=== PATIENT | male | born 1960 | race Caucasian/White ===

== ENCOUNTER 2018-04-19 05:17 | Observation (INO) ==
[2018-04-19] MEDS ORDERED: Ondansetron 4 MG/2 ML VIAL IVP ONE (05:26)
[2018-04-19] MEDS ORDERED: *HR* FentaNYL (PF) 100 MCG/2 ML VIAL IVP ONE ×2 (05:27→06:06)
--- NOTE | 2018-04-19 05:35 | Emergency Department Note ---
Disposition Clinical Impression: Cholecystitis Disposition: Admitted As Inpatient Condition: Fair Referrals: Supriya Wahsington MD [Primary Care Provider] - Forms: ED Satisfaction Letter, Work/School Release Time of Disposition: 06:21 General Adult HPI - General Chief complaint: ED Abdominal Pain Stated complaint: abd pain Time Seen by Provider: 04/19/18 05:25 Source: patient, family Mode of arrival: ambulatory Limitations: no limitations Nursing Notes Reviewed: Yes Vital Signs Reviewed: Yes - History of Present Illness HPI Narrative: 57-year-old male presenting with chief complaint of right-sided abdominal pain. Patient states approximately 2:00 this morning he has had severe right-sided abdominal pain leading to nausea and belching. Patient denies any chest pain or shortness of breath. Denies any fevers or recent illnesses. Patient states a few weeks ago he had similar symptoms in the right upper quadrant but that these spontaneously resolved and were not as severe. Patient has had a hernia repair and "kidney surgery" but no other abdominal surgeries. Patient still has gallbladder and appendix. Patient denies trying any medications at home for this. Pain Scale: 10 - Related Data Allergies Allergy/AdvReac Type Severity Reaction Status Date / Time No Known Allergies Allergy Unverified 01/09/17 08:02 All systems ED: reviewed and negative except as stated. Constitutional: Denies: fever, chills Eyes: Reports: as per HPI ENT ED: Reports: as per HPI Cardiovascular: Denies: chest pain, palpitations, dyspnea on exertion Respiratory: Denies: cough, dyspnea, wheezes Gastrointestinal: Reports: abdominal pain, nausea. Denies: vomiting Genitourinary: Reports: as per HPI Musculoskeletal: Reports: as per HPI Integumentary: Reports: as per HPI Neurological: Denies: weakness, numbness, paresthesias Psychiatric: Reports: as per HPI Endocrine: Reports: as per HPI Hematological/Lymphatic: Reports: as per HPI Allergic/Immunologic: Reports: as per HPI Past Medical History - Past Medical History Attestation: Yes The following information was validated with the patient. Medical history: Reports: GERD, hypertension, kidney stones - Social History Smoking Status: Never smoker Smokeless Tobacco Status: No Alcohol use: Reports: rarely Drug use: Reports: none Physical Exam - General Limitations: no limitations General appearance: alert, in no apparent distress - Head Head exam: atraumatic, normocephalic, normal inspection - Eye Eye exam: Present: normal appearance. Absent: scleral icterus, conjunctival injection - ENT ENT exam: normal exam, mucous membranes moist - Neck Neck exam: Present: normal inspection, full ROM. Absent: tenderness, meningismus - Chest Chest inspection: Present: normal inspection, symmetric chest wall rise. Absent: tenderness, rash - Respiratory Respiratory exam: Present: normal lung sounds bilaterally. Absent: respiratory distress, wheezes - Cardiovascular Cardiovascular exam: Present: regular rate, normal rhythm, normal heart sounds - Abdominal Exam Abdominal exam: Present: soft, tenderness, distention, Vera's sign. Absent: guarding, rebound, rigidity Abdominal tenderness: Present: RUQ, RLQ, moderate - Extremities Exam Extremities exam: Present: normal inspection, full ROM - Neurological Exam Neurological exam: Present: alert, oriented X3 - Skin Skin exam: Present: warm, intact Course Course Narrative: 57-year-old male presenting to the emergency department for right-sided abdominal pain. In the room patient is extremely uncomfortable on exam. Rolling around on the bed. He is alert and oriented 3 and hemodynamically stable. Physical exam shows right-sided abdominal pain along the mid abdominal pain around the umbilicus. Patient's abdomen is mildly distended. Patient has had increased belching. Concern for acute cholecystitis versus other intra- abdominal pathologies at this time. We will obtain a laboratory analysis along with a CT of the abdomen and pelvis with pain control and antinausea medications . Disposition pending results. Patient agrees with this plan. - Reevaluation(s) Reevaluation #1: Patient's laboratory analysis benign. Bedside ultrasound completed and shows a thickened gallbladder wall. Positive Vera sign. Patient has received multipl e doses the pain medication in the ED and still having significant pain. By attending spoke with the surgeon on-call Dr. Alfredo who agrees this follows a pattern of acute cholecystitis. We will plan to admit the patient to his surgical surfaces for further treatment. He requests we start Zosyn on the patient. Patient remains alert and oriented 3 and hemodynamically stable in the room. Patient agrees to admission and further evaluation. Vital Signs Temperature 97.7 F 04/19/18 05:23 Pulse Rate 70 04/19/18 05:23 Respiratory Rate 20 04/19/18 05:23 Blood Pressure 165/9 04/19/18 05:23 O2 Sat by Pulse Oximetry 99 04/19/18 05:23 Temperature 97.7 F 04/19/18 05:23 Pulse Rate 66 04/19/18 06:09 Respiratory Rate 18 04/19/18 06:09 Blood Pressure 149/84 04/19/18 06:09 O2 Sat by Pulse Oximetry 97 04/19/18 06:09 Oxygen Delivery Oxygen Delivery Room Air Medical Decision Making - Lab Data Result diagrams: 04/19/18 05:25 04/19/18 05:25 Lab Results 04/19/18 04/19/18 Range/Units 05:25 05:25 WBC 9.8 (4.3-11.1) K/mcL RBC 5.14 (4.19-5.50) M/mcL Hgb 15.0 (12.9-16.9) g/dL Hct 46.5 (37.5-50.1) % MCV 90.5 (83.0-100.0) fL MCH 29.2 (28.0-33.3) pg MCHC 32.3 (31.6-35.5) g/dL RDW 12.4 (11.5-14.5) % Plt Count 285 (140-400) K/mcL MPV 10.2 (9.4-12.4) fL Immature Gran % 0.4 (0-4) % Seg Neutrophils % 77.8 % Lymphocytes % 11.2 % Monocytes % 8.1 % Eosinophils % 1.4 % Basophils % 1.1 % Neutrophils # 7.6 (1.6-8.9) K/mcL Lymphocytes # 1.1 (0.6-4.6) K/mcL Monocytes # 0.8 (0.0-1.3) K/mcL Eosinophils # 0.1 (0.0-0.6) K/mcL Basophils # 0.1 (0.0-0.2) K/mcL Sodium 138 (136-145) mEq/L Potassium 3.8 (3.5-5.1) mEq/L Chloride 103 (98-107) mEq/L Carbon Dioxide 25 (23-29) mEq/L BUN 19 (6-20) mg/dL Creatinine 0.99 (0.70-1.30) mg/dL Est GFR ( Amer) > 60 (> 60) Est GFR (Non-Af Amer) > 60 (> 60) BUN/Creatinine Ratio 19 (6-26) Glucose 142 H (70-105) mg/dL Calculated Osmolality 291 (280-300) Calcium 9.5 (8.6-10.3) mg/dL Total Bilirubin 0.4 (0.3-1.0) mg/dL Direct Bilirubin 0.1 (0.0-0.2) mg/dL Indirect Bilirubin 0.3 (0.0-1.2) mg/dL AST 14 (13-39) Units/L ALT 17 (7-52) Units/L Alkaline Phosphatase 54 (34-104) Units/L Serum Total Protein 7.4 (6.4-8.9) g/dL Albumin 4.5 (3.5-5.7) g/dL Globulin 2.9 (2.4-3.5) g/dL Albumin/Globulin Ratio 1.6 (1.1-2.2) Lipase 32 (11-82) Units/L Attestation Statement - Attestation Attestation: I, Elmer Leone, examined this patient and my medical decision-making was reviewed with the [employer]/PA/Advanced Practice Nurse/Resident Physician. I agree with the documented findings, disposition and treatment plan as described except to the extent set forth below. 57-year-old male presents emergency Department with concerns of severe epigastric and right upper quadrant abdominal pain. Patient states symptoms started acutely after Thanksgiving dinner one week ago. They have been intermittent since that time. Last night he ate asandwich and has had significant pain to the right upper quadrant. Eyes fever, chills, jaundice, vomiting. He did notice a change in color of her stools over the past week. Bedside ultrasound showed a thickened gallbladder wall to 6 mm with sludge and stones within the gallbladder. There is no evidence of pericholecystic fluid h owever he did have a positive sonographic Vera sign. CT also showed thickening of the gallbladder wall without pericholecystic fluid. Patient is afebrile and does not have elevation of his LFTs however he is not significant pain in the emergency department. I spoke with Dr. Alfredo regarding the patient's case and presentation who agreed with the plan for admission to hospital on IV antibiotics and possible surgery.
[2018-04-19 05:41] LABS: Basophils # 0.1 K/mcL (0.0-0.2); Basophils % 1.1 %; Eosinophils # 0.1 K/mcL (0.0-0.6); Eosinophils % 1.4 %; Hematocrit 46.5 % (37.5-50.1); Immature Granulocytes % 0.4 % (0-4); Lymphocytes # 1.1 K/mcL (0.6-4.6); Lymphocytes % 11.2 %; Mean Corpuscular HGB Conc 32.3 g/dL (31.6-35.5); Mean Corpuscular Hemoglobin 29.2 pg (28.0-33.3); Mean Corpuscular Volume 90.5 fL (83.0-100.0); Mean Platelet Volume 10.2 fL (9.4-12.4); Monocytes # 0.8 K/mcL (0.0-1.3); Monocytes % 8.1 %; Neutrophils # 7.6 K/mcL (1.6-8.9); Platelet Count 285 K/mcL (140-400); Red Blood Count 5.14 M/mcL (4.19-5.50); Red Cell Distribution Width 12.4 % (11.5-14.5); Segmented Neutrophils % 77.8 %
[2018-04-19 06:01] LABS: Alanine Aminotransferase 17 Units/L (7-52); Albumin 4.5 g/dL (3.5-5.7); Albumin/Globulin Ratio 1.6 (1.1-2.2); Alkaline Phosphatase 54 Units/L (34-104); Aspartate Amino Transferase 14 Units/L (13-39); BUN/Creatinine Ratio 19 (6-26); Bilirubin,Direct 0.1 mg/dL (0.0-0.2); Bilirubin,Indirect 0.3 mg/dL (0.0-1.2); Bilirubin,Total 0.4 mg/dL (0.3-1.0); Blood Urea Nitrogen 19 mg/dL (6-20); Calcium 9.5 mg/dL (8.6-10.3); Carbon Dioxide 25 mEq/L (23-29); Chloride 103 mEq/L (98-107); Globulin 2.9 g/dL (2.4-3.5); Glucose 142 mg/dL (70-105); Lipase 32 Units/L (11-82); Osmolality,Calculated 291 (280-300); Potassium 3.8 mEq/L (3.5-5.1); Sodium 138 mEq/L (136-145); Total Protein 7.4 g/dL (6.4-8.9); eGFR For Non-African Americans > 60 (> 60)
[2018-04-19] MEDS ORDERED: Hyoscyamine 0.5 MG/ML MLS IVP ONE (06:09)
[2018-04-19] MEDS ORDERED: Piperacillin/Tazobactam 3.375 GM in 0.9 % Sodium Chloride Mini Bag 100 ML IVPB ONE (06:15)
[2018-04-19 07:15] LABS: INR 1.2; Prothrombin Time 13.1 Seconds (9.4-12.1)
[2018-04-19 08:53] LABS: Bilirubin,Urine Negative (Negative); Blood,Urine Negative (Negative); Clarity,Urine Turbid (Clear); Color,Urine Yellow (Yellow); Glucose,Urine (UA) Normal (Normal); Ketones,Urine Trace mg/dL (Negative); Leukocyte Esterase,Urine Negative (Negative); Nitrite,Urine Negative (Negative); Protein,Urine Trace mg/dL (Neg-Trace); Specific Gravity,Urine > 1.030 (1.010-1.025); Urobilinogen,Urine Normal (Normal)
[2018-04-19 09:09] LABS: Bacteria,Urine Many per hpf (None-Few)
[2018-04-19 09:10] LABS: Amorphous Sediment,Urine Few (Few); RBC,Urine 0-3 per hpf (0-3); Squamous Epithelial Cell,Urine Few per lpf (None-Few); WBC,Urine 0-3 per hpf (0-3)
[2018-04-19] MEDS: OXYCODONE Oral CONC 10 MG/0.5 ML ORAL.SYG SL PRN ×2 (09:44→20:26)
[2018-04-19] MEDS ORDERED: Naloxone 0.4 MG/ML INJ IVP PRN (10:28)
[2018-04-19] MEDS: 0.9 % Sodium Chloride 1,000 ML IVC SCH ×2 (14:12→23:49)
[2018-04-19] MEDS: Ondansetron 4 MG/2 ML VIAL IVP SCH ×3 (14:12→23:46)
[2018-04-19] MEDS: *HR* OxyCODONE Immed Rel 5 MG TABLET PO PRN (14:28)
[2018-04-19] MEDS: Piperacillin/Tazobactam 3.375 GM in 0.9 % Sodium Chloride Mini Bag 100 ML IVPB SCH ×2 (17:04→23:44)
--- NOTE | 2018-04-19 19:51 | General Surg History&Physical ---
Date of Encounter: 04/19/18 Time of Encounter: 08:00 Assessment and Plan (1) Cholecystitis Current Visit: Yes Status: Acute 57M likely with mild cholecystis; non septic; Discussed in detail with the patient concerning non operative management vs surgery while an inpatient. Due to social circumstances, the patient would rather have his gallbladder removed this admission; diet as tolerated; bland NPO at midnight IV abx plan for OR in AM with my partner, Dr. Elizondo Discussed with patient and Dr. Elizondo. The assessment and plan as outlined above was discussed with the patient and/or family members who expressed understanding and agreement. All questions were answered. History of Present Illness Chief complaint: abdominal pain HPI: Mr. Rajan is a 57 year old male who presents with a week long history of RUQ/epigastric pain that was precipated after thanksgiving dinner. No reports of radiation, but the pain was sharp per the patient, rated ~8-10/10 with associated nausea, vomiting, and PO intolerance. The patient was not able to identify any alleviating factors. No reports of fevers, chills, nor diarrhea. Due to the severity of symptoms and its non relenting nature, the patient presented for evaluation. A CT scan and US were obtained which confirmed gallbladder wall thickening, sludge, and trace pericholecystic fluid. All findings were reviewed and inte rpreted by me in combination with radiology reads. Of note, this morning the patient reports no pain, has a strong appetite, never had a white count nor an elevation of his T bili to suggest obstruction. Past Med Surg Social Fam HX - Past Medical History Medical history: GERD, hypertension, kidney stones - Social History Smoking Status: Former smoker Smokeless Tobacco Status: No Alcohol use: rarely Drug use: none - Family History Mother Hx Family Cancer: Yes Father Hx Family Cardiac Disorders: Yes Hx Family Endocrine Disorder: Yes (DM) Hx Family Medical Disorders: Yes (Kidney dx) Medications and Allergies Albuterol Sulfate [Albuterol Inhaler] 2 puff IH Q6H PRN 04/19/18 [History] Gabapentin [Neurontin] 300 mg PO HS 04/19/18 [History] Losartan Potassium 50 mg PO DAILY 04/19/18 [History] Omeprazole [PriLOSEC] 40 mg PO DAILY 04/19/18 [History] Allergy/AdvReac Type Severity Reaction Status Date / Time No Known Allergies Allergy Verified 04/19/18 07:03 Review of Systems All systems PM: 12 point ROS negative besides HPI findings; General Surgery Exam Initial Vital Signs Temp Pulse Resp BP Pulse Ox 97.7 F 70 20 165/9 99 04/19/18 05:23 04/19/18 05:23 04/19/18 05:23 04/19/18 05:23 04/19/18 05:23 - General physical appearance no distress - Eyes other (no scleral icterus) - ENT normocephalic - Neck no lymphadectomy - Respiratory normal expansion, normal respiratory effort - Cardiovascular Cardiovascular exam: Present: RRR - Abdomen Abdomen general surgery: Present: soft, non tender ((-)mehta's sign) - Integumentary Integumentary general surgery: Present: warm and dry - Neurologic Present: CN 2-12 grossly intact - Musculoskeletal Present: normal posture - Psychiatric Psychiatric general surgery: Present: A&Ox3 Results - Labs 04/19/18 05:25 04/19/18 05:25 Abnormal lab results PT 13.1 Seconds (9.4-12.1) H 04/19/18 06:54 Glucose 142 mg/dL (70-105) H 04/19/18 05:25 Urine Clarity Turbid (Clear) A 04/19/18 08:45 Ur Specific [place] > 1.030 (1.010-1.025) H 04/19/18 08:45 Urine Ketones Trace mg/dL (Negative) H 04/19/18 08:45 Urine Bacteria Many per hpf (None-Few) H 04/19/18 08:45 Diabetes panel 04/19/18 Range/Units 05:25 Sodium 138 (136-145) mEq/L Potassium 3.8 (3.5-5.1) mEq/L Chloride 103 (98-107) mEq/L Carbon Dioxide 25 (23-29) mEq/L BUN 19 (6-20) mg/dL Creatinine 0.99 (0.70-1.30) mg/dL Glucose 142 H (70-105) mg/dL Calcium 9.5 (8.6-10.3) mg/dL AST 14 (13-39) Units/L ALT 17 (7-52) Units/L Alkaline Phosphatase 54 (34-104) Units/L Albumin 4.5 (3.5-5.7) g/dL Calcium panel 04/19/18 Range/Units 05:25 Calcium 9.5 (8.6-10.3) mg/dL Albumin 4.5 (3.5-5.7) g/dL Pituitary panel 04/19/18 Range/Units 05:25 Sodium 138 (136-145) mEq/L Potassium 3.8 (3.5-5.1) mEq/L Chloride 103 (98-107) mEq/L Carbon Dioxide 25 (23-29) mEq/L BUN 19 (6-20) mg/dL Creatinine 0.99 (0.70-1.30) mg/dL Glucose 142 H (70-105) mg/dL Calcium 9.5 (8.6-10.3) mg/dL Adrenal panel 04/19/18 Range/Units 05:25 Sodium 138 (136-145) mEq/L Potassium 3.8 (3.5-5.1) mEq/L Chloride 103 (98-107) mEq/L Carbon Dioxide 25 (23-29) mEq/L BUN 19 (6-20) mg/dL Creatinine 0.99 (0.70-1.30) mg/dL Glucose 142 H (70-105) mg/dL Calcium 9.5 (8.6-10.3) mg/dL Total Bilirubin 0.4 (0.3-1.0) mg/dL AST 14 (13-39) Units/L ALT 17 (7-52) Units/L Alkaline Phosphatase 54 (34-104) Units/L Albumin 4.5 (3.5-5.7) g/dL All other labs normal. - Imaging CT scan - abdomen: report reviewed, image reviewed CT scan - pelvis: report reviewed, image reviewed US - abdomen: report reviewed, image reviewed
[2018-04-20] MEDS ORDERED: Ondansetron 4 MG/2 ML VIAL IVP ONE ×2 (01:14→10:27)
[2018-04-20] MEDS: *HR* OxyCODONE Immed Rel 5 MG TABLET PO PRN (03:32)
[2018-04-20] MEDS: Ondansetron 4 MG/2 ML VIAL IVP SCH ×2 (06:06→11:41)
[2018-04-20] MEDS: Piperacillin/Tazobactam 3.375 GM in 0.9 % Sodium Chloride Mini Bag 100 ML IVPB SCH (07:36)
[2018-04-20] MEDS ORDERED: *HR* Succinylcholine 200 MG/10 ML VIAL IVP ONE (08:42)
[2018-04-20] MEDS ORDERED: *HR* FentaNYL (PF) 100 MCG/2 ML VIAL ONE (08:43)
[2018-04-20] MEDS ORDERED: *HR* Propofol 200 MG/20 ML VIAL IVP ONE (08:44)
[2018-04-20] MEDS ORDERED: *HR* Midazolam HCl 2 MG/2 ML VIAL ONE (08:44)
[2018-04-20] MEDS ORDERED: Lidocaine -MPF 2% 2 ML VIAL ONE (08:45)
[2018-04-20] MEDS ORDERED: *HR* Rocuronium Bromide 50 MG/5 ML VIAL ONE (08:45)
[2018-04-20] MEDS ORDERED: Dexamethasone 4 MG/ML VIAL ONE (08:45)
[2018-04-20] MEDS ORDERED: Ondansetron 4 MG/2 ML VIAL ONE (08:45)
[2018-04-20] MEDS ORDERED: Neostigmine Methylsulfate 3 MG/3 ML SYRINGE ONE (08:48)
--- NOTE | 2018-04-20 09:09 | Event Note ---
Date of Encounter: 04/20/18 Time of Encounter: 09:08 Patient admitted to the hospital secondary to acute cholecystitis. Patient cannot have the procedure performed yesterday due to the lateness the possible double opening for the surgical procedure. Patient states that currently he is not having any pain. No nausea or vomiting. We will proceed with a laparoscopic cholecystectomy
[2018-04-20] MEDS: OXYCODONE Oral CONC 10 MG/0.5 ML ORAL.SYG SL PRN (09:38)
--- NOTE | 2018-04-20 09:47 | Anesthesia Evaluation PreOp ---
Date of Encounter: 04/20/18 Time of Encounter: 10:12 - Past History Planned Operation: Lap cholecystectomy Cardiac History: HTN Pulmonary History: Former smoker, COPD [employer]OR History: Denies Any Significant HX Other Medical History: Renal (stones), GERD Anesthesia History: No Prior Anesthetic Complications Alcohol Use: rarely Drug use: none Medications and Allergies Albuterol Sulfate [Albuterol Inhaler] 2 puff IH Q6H PRN 04/19/18 [History] Gabapentin [Neurontin] 300 mg PO HS 04/19/18 [History] Losartan Potassium 50 mg PO DAILY 04/19/18 [History] Omeprazole [PriLOSEC] 40 mg PO DAILY 04/19/18 [History] Allergy/AdvReac Type Severity Reaction Status Date / Time No Known Allergies Allergy Verified 04/19/18 07:03 - Meds/Allergy Pre-op Review Medications Reviewed: Yes Allergies Reviewed: Yes Beta Blockers on Current Med List: No Anesthesia Results - Labs 04/19/18 05:25 04/19/18 05:25 - Imaging Additional studies: PFTs: INTERPRETATION: Spirometry shows mild airway restrictive disease. Following Bronchodilator, there is 28% increase in small airways/mid-flows. Lung Volumes SVC mildly reduced. Flow Volume Loop: Normal. Anesthesia Exam Last Vital Signs Temp 97.4 F L 04/20/18 06:46 Pulse 75 04/20/18 06:46 Resp 12 04/20/18 06:46 BP 116/66 04/20/18 06:46 Pulse Ox 94 04/20/18 06:46 Weight: 103 kg - HEENT Pupil (Motor): Pupils equal, EOMI Mallampati: III Teeth: Missing, Poor dentition Denture Type: Upper: Complete Oral Opening: Greater than 3 - [employer]OR LOC: Oriented - Cardiac Rhythm: Regular Murmur: None - Pulmonary Breath Sounds: bilateral Clear Respiratory Effort: Symmetrical Anesthesia Assess/Plan ASA Score: 2 Level of consciousness: Cooperative Anesthetic Plan: General Monitoring Plan: Standard Monitors Recovery Plan: PACU
[2018-04-20] MEDS ORDERED: Bupivacaine/EPI 1:200k 0.5%PF 30 ML VIAL ONE (10:16)
[2018-04-20] MEDS ORDERED: Isovue-300 50 ML VIAL IVP ONE (10:16)
[2018-04-20] MEDS ORDERED: *HR* OxyCODONE Immed Rel 5 MG TABLET PO PRN ×2 (10:27→13:35)
[2018-04-20] MEDS ORDERED: *HR* Promethazine 25 MG/ML VIAL IVP PRN (10:27)
[2018-04-20] MEDS ORDERED: EPHEDrine 50 MG/ML VIAL ONE (11:12)
[2018-04-20] MEDS ORDERED: *HR* Morphine 10 MG/ML VIAL ONE (11:21)
--- NOTE | 2018-04-20 12:05 | Operative Note ---
Date of procedure: 04/20/18 Pre-op diagnosis: Acute cholecystitis Post-op diagnosis: same Procedure: Laparoscopic cholecystectomy Anesthesia: LIZANDROA Surgeon: Masood Elizondo Was there an student assistant present: No Estimated blood loss (cc): 20 Specimen: gallbladder and contents Condition: stable Disposition: PACU Procedure in Detail: Date of surgery: 04/20/18 After properly identifying the patient, the patient was brought to the operating room and placed in the supine position. After proper IV sedation was achieved followed by general endotracheal intubation, the patient's abdomen was prepped and draped in a normal sterile fashion. A timeout was performed noting the patient's name and type of procedure to be performed. An 11 blade scalpel was used to make a supraumbilical incision down to the level of the rectus fascia. Once the fascia was incised and the abdomen was entered a 12 mm port was placed to the incision and the abdomen was insufflated with carbon dioxide. A laparoscopic camera was placed through the port which showed no injury to the intra-abdominal organs upon entry. A subxiphoid 5 mm port and a right subcostal margin 5 mm port were then placed under direct camera visualization. The patient was placed in reverse Trendelenburg position and the gallbladder was retracted superiorly and anteriorly. The peritoneum appeared somewhat inflamed consistent with acute cholecystitis. The gallbladder was also distended and a laparoscopic needle decompression was performed which allow for removal of 30 mL of bilious material. This allowed for grasping of the gallbladder. The peritoneal covering overlying the cystic duct and cystic artery were then is olated, clipped with laparoscopic clips, and incised laparoscopic scissors. The gallbladder was carefully dissected off the gallbladder fossa with Bovie cauterization. During this dissection and retraction the gallbladder was iatrogenically entered with spillage of bile and small stones which were immediately suctioned and removed. Once the gallbladder was carefully teased off and dissected off the gallbladder fossa it was removed from the abdomen via an Endobag. Two large gallstones were also identified outside of the gallbladder which were also placed in the endoscopic bag and removed. The gallbladder fossa was reinspected for hemostasis which was maintained in the right upper quadrant was copiously irrigated with normal saline solution until the effluent was clear. All ports are then removed from the abdomen after the abdomen was desufflated. This fascia for the supraumbilical incision was reapproximated with a figure of 8-0 Vicryl suture. The subcutaneous tissue was reapproximated with a 3-0 Vicryl suture and the epidermal and dermal layers for the remaining incisions were closed with 4-0 Monocryl sutures. No, sponge, and instrument counts were correct 2 and the incisions were covered with Steri-Strips and Band-Aids. The patient was aroused from IV sedation, extubated in the operating room without complication, and transported to the recovery room in stable condition.
--- NOTE | 2018-04-20 12:09 | Discharge Summary ---
Orders not resulted at time of discharge: Pending orders 04/20/18 11:57 Surgical Pathology [PTH] Routine Date of Encounter: 04/20/18 Time of Encounter: 12:10 General Surgery Exam Initial Vital Signs Temp Pulse Resp BP Pulse Ox 97.7 F 70 20 165/9 99 04/19/18 05:23 04/19/18 05:23 04/19/18 05:23 04/19/18 05:23 04/19/18 05:23 - Eyes PERRL, normal ocular movement - Cardiovascular Cardiovascular exam: Present: RRR, no murmurs/rubs/gallops - Abdomen Abdomen general surgery: Present: soft, tender (perincisional pain. Band-Aids in place.) - Hospital Course Hospital course: Mr. Rajan is a 57 year old male Time spent discussing smoking cessation with patient: 3 to 10 minutes - Time Spent with Patient Total time spent providing and/or coordinating discharge services: Less than 30 minutes - Discharge Medications Prescriptions: OxyCODONE/APAP 7.5/325 [Percocet 7.5/325 MG] 1 each PO Q8HR PRN 7 Days #21 tablet PRN Reason: Pain Docusate [Colace] 100 mg PO BID 5 Days #20 capsule Home Medications: Albuterol Sulfate [Albuterol Inhaler] 2 puff IH Q6H PRN 04/19/18 [History] Gabapentin [Neurontin] 300 mg PO HS 04/19/18 [History] Losartan Potassium 50 mg PO DAILY 04/19/18 [History] Omeprazole [PriLOSEC] 40 mg PO DAILY 04/19/18 [History] Docusate [Colace] 100 mg PO BID 5 Days #20 capsule 04/20/18 [Rx] OxyCODONE/APAP 7.5/325 [Percocet 7.5/325 MG] 1 each PO Q8HR PRN 7 Days #21 tablet 04/20/18 [Rx] Allergies/Adverse Reactions: Allergy/AdvReac Type Severity Reaction Status Date / Time No Known Allergies Allergy Verified 04/19/18 07:03 Date of admission: 04/19/18 06:50 Primary care physician: Supriya Washington MD Discharging clinician: Masood Elizondo Anticipated date of discharge: 04/20/18 Labs on day of discharge: Labs from last 24 hours 04/20/18 05:55 POC Glucose 101 H - Impressions ITS Impressions Abdomen/Pelvis CT 04/19/18 05:32 IMPRESSION: Gallbladder is mildly dilated with mild wall thickening/edema. Possible punctate pigmented gallstone. Findings may represent cholecystitis in the appropriate clinical setting. Few incidental/chronic findings as described. RECOMMENDATIONS: Consider further assessment with ultrasound and/or HIDA scan as clinically warranted. D/ / Alvarez Andres MD / Alvarez Andres MD Interpreting Provider: Alvarez Andres MD Gallbladder Ultrasound 04/19/18 06:30 IMPRESSION: Gallstones and gallbladder sludge are present, with findings concerning for acute cholecystitis. D/ / Junior Voss MD / Junior Voss MD Interpreting Provider: Junior Voss MD - Patient Status Disposition: Home, Self-Care Condition: Good Overall status at discharge: patient is progressing back to baseline - Discharge Instructions Follow Up With: Supriya Washington MD [Primary Care Provider] - Additional Instructions: No heavy lifting greater than 15 pounds for 2 weeks. May remove Band-Aids in 2 days. May shower in 2 days.
[2018-04-20] MEDS ORDERED: Acetaminophen IV 1,000 MG/100 ML INFUS..BTL ONE (12:23)
[2018-04-20] MEDS ORDERED: Ringers Solution, Lactated 1,000 ML ONE (12:23)
[2018-04-20] MEDS ORDERED: Ketorolac 30 MG/ML VIAL ONE (12:23)
[2018-04-20] MEDS: *HR* HYDROmorphone (PF) 1 MG/ML SYRINGE IVP PRN ×2 (12:28→12:49)
--- NOTE | 2018-04-20 13:27 | Anesthesia Evaluation Post Op ---
Date of Encounter: 04/20/18 Time of Encounter: 13:25 - Vital Signs Vital Signs: Last Vital Signs Temp 97.9 F 04/20/18 13:12 Pulse 60 04/20/18 13:12 Resp 20 04/20/18 13:12 BP 127/71 04/20/18 13:12 Pulse Ox 96 04/20/18 13:12 - Lungs Lungs: Clear Ascult./Percussion - Airway Airway: Non-obstructed - Cardiovascular Regular Rate - Mental Status Mental Status: Alert & Oriented, Answers Appropriately - Pain Pain Scale: 5 - Nausea Vomiting Nausea Vomiting: Not Present - Hydration Hydration: Ice chips - Discharge PostOp Status: Transfer Patient to floor
[2018-04-20] MEDS ORDERED: MORPHINE SUL Oral CONC 10 MG/0.5 ML ORAL.SYG SL PRN (13:35)
[2018-04-20] MEDS ORDERED: Naloxone 0.4 MG/ML INJ IVP PRN (13:35)
[2018-04-20] MEDS ORDERED: OXYCODONE Oral CONC 10 MG/0.5 ML ORAL.SYG SL PRN (13:35)
[2018-04-20] MEDS ORDERED: Piperacillin/Tazobactam 3.375 GM in 0.9 % Sodium Chloride Mini Bag 100 ML IVPB SCH (16:00)
[2018-04-20 16:04] VITALS: BP 139/82
[2018-04-20] MEDS ORDERED: Ondansetron 4 MG/2 ML VIAL IVP SCH (18:00)
== END 2018-04-20 16:16 | disposition home or self-care (01) ==
LOC: EMEROOARM 05:17 → 3ANU 05:17
PROVIDERS: ADMIT Surgery; ATTEND Surgery

== ENCOUNTER 2020-01-17 13:54 | Observation (INO) ==
[2020-01-17] MEDS ORDERED: Aspirin 325 MG TABLET PO ONE (14:55)
[2020-01-17 15:49] LABS: Basophils # 0.1 K/mcL (0.0-0.2); Basophils % 1.1 %; Eosinophils # 0.1 K/mcL (0.0-0.6); Eosinophils % 1.3 %; Hematocrit 45.5 % (37.5-50.1); Immature Granulocytes % 0.6 % (0-4); Lymphocytes # 1.4 K/mcL (0.6-4.6); Lymphocytes % 14.1 %; Mean Corpuscular Hemoglobin 29.9 pg (28.0-33.3); Mean Corpuscular Volume 90.8 fL (83.0-100.0); Mean Platelet Volume 10.5 fL (9.4-12.4); Monocytes # 0.8 K/mcL (0.0-1.3); Monocytes % 8.3 %; Neutrophils # 7.3 K/mcL (1.6-8.9); Platelet Count 247 K/mcL (140-400); Red Blood Count 5.01 M/mcL (4.19-5.50); Red Cell Distribution Width 12.9 % (11.5-14.5); Segmented Neutrophils % 74.6 %; White Blood Count 9.8 K/mcL (4.3-11.1)
[2020-01-17 15:58] LABS: Prothrombin Time 11.4 Seconds (9.4-12.1)
[2020-01-17 16:00] LABS: Activated Partial Thrombo Time 33.9 Seconds (26.0-36.0); BUN/Creatinine Ratio 13 (6-26); Blood Urea Nitrogen 14 mg/dL (8-23); Calcium 9.4 mg/dL (8.6-10.3); Carbon Dioxide 23 mEq/L (23-29); Chloride 106 mEq/L (98-107); Glucose 115 mg/dL (70-105); Magnesium 1.9 mg/dL (1.6-2.6); Osmolality,Calculated 291 (280-300); Potassium 3.5 mEq/L (3.5-5.1); Sodium 140 mEq/L (136-145); eGFR For African Americans > 60 (> 60); eGFR For Non-African Americans > 60 (> 60)
[2020-01-17 16:03] LABS: Troponin I 0.04 ng/mL (< 0.04)
[2020-01-17] MEDS ORDERED: Isovue-370 500 ML BOTTLE IVP ONE (16:04)
[2020-01-17] MEDS ORDERED: Naloxone 0.4 MG/ML INJ IVP PRN (17:15)
[2020-01-17] MEDS ORDERED: Perflutren Lipid Microsphere 1.3 ML in 0.9 % Sodium Chloride 8.7 ML IVP PRN (17:15)
[2020-01-17] MEDS ORDERED: Nitroglycerin 0.4 MG TAB.SUBL SL PRN (18:13)
[2020-01-17] MEDS ORDERED: Ipratropium/Albuterol Neb 3 ML IH PRN (18:17)
[2020-01-17] MEDS: *HR* Heparin 5,000 UNIT/ML VIAL SQ SCH (18:30)
[2020-01-17] MEDS: Acetaminophen 325 MG TABLET PO PRN (18:32)
[2020-01-17] MEDS ORDERED: Morphine Sulfate 2 MG/ML SYRINGE IVP ONE (19:29)
[2020-01-17] MEDS ORDERED: Melatonin 3 MG TABLET PO PRN (21:08)
[2020-01-18] MEDS ORDERED: *HR* LORazepam 2 MG/ML VIAL IVP ONE ×2 (00:17→03:11)
[2020-01-18 03:23] LABS: Hematocrit 43.6 % (37.5-50.1); Hemoglobin 13.7 g/dL (12.9-16.9); Mean Corpuscular HGB Conc 31.4 g/dL (31.6-35.5); Mean Corpuscular Hemoglobin 29.5 pg (28.0-33.3); Mean Corpuscular Volume 93.8 fL (83.0-100.0); Mean Platelet Volume 10.4 fL (9.4-12.4); Platelet Count 211 K/mcL (140-400); Red Blood Count 4.65 M/mcL (4.19-5.50); White Blood Count 6.9 K/mcL (4.3-11.1)
[2020-01-18 03:40] LABS: BUN/Creatinine Ratio 14 (6-26); Blood Urea Nitrogen 16 mg/dL (8-23); Calcium 8.9 mg/dL (8.6-10.3); Carbon Dioxide 24 mEq/L (23-29); Chloride 106 mEq/L (98-107); Glucose 104 mg/dL (70-105); Osmolality,Calculated 291 (280-300); Potassium 3.6 mEq/L (3.5-5.1); Sodium 140 mEq/L (136-145); eGFR For African Americans > 60 (> 60); eGFR For Non-African Americans > 60 (> 60)
[2020-01-18] MEDS: *HR* Heparin 5,000 UNIT/ML VIAL SQ SCH (05:14)
[2020-01-18] MEDS ORDERED: Regadenoson 0.4 MG/5 ML SYRINGE IVP ONE (07:32)
[2020-01-18] MEDS: Aspirin Enteric Coated 81 MG Tablet PO SCH (08:59)
[2020-01-18] MEDS ORDERED: *HR* Heparin 5,000 UNIT/ML VIAL IVP ONE (10:53)
[2020-01-18] MEDS ORDERED: *HR* Heparin 5,000 UNIT/ML VIAL IVP PRN ×2 (10:53)
[2020-01-18] MEDS ORDERED: Heparin 25,000UNIT/250ML 1/2NS 25,000 UNIT/250 ML IV.SOLN IVC SCH (11:00)
[2020-01-18 11:01] LABS: Chol/HDL Ratio 4.7 (0-4.9); Cholesterol 173 mg/dL (< 200); HDL Cholesterol 37 mg/dL (40-59); LDL Cholesterol,Calculated 99 mg/dL (< 100); Triglycerides 185 mg/dL (< 150)
[2020-01-18 11:02] LABS: Troponin I < 0.03 ng/mL (< 0.04)
[2020-01-18] MEDS: Nitroglycerin 0.2 MG PATCH.TD24 TD SCH (11:24)
[2020-01-18] MEDS: Acetaminophen 325 MG TABLET PO PRN ×2 (12:23→21:09)
[2020-01-18] MEDS ORDERED: Morphine Sulfate 2 MG/ML SYRINGE IVP ONE (14:56)
[2020-01-18] MEDS ORDERED: 0.9 % Sodium Chloride 1,000 ML ONE (15:56)
[2020-01-18] MEDS ORDERED: ISOVUE-370 200 ML INFUS..BTL ONE (15:57)
[2020-01-18] MEDS ORDERED: Nitroglycerin 1,000 MCG/10 ML VIAL IV ONE (15:57)
[2020-01-18] MEDS ORDERED: *HR* Heparin 10,000 UNIT/10 ML VIAL ONE (15:57)
[2020-01-18] MEDS ORDERED: Heparin 1,000 UNITS/500 mL 500 ML ONE (15:57)
[2020-01-18] MEDS ORDERED: Tirofiban 12.5 MG/250ML 12.5 MG/250 ML BAG ONE (16:34)
[2020-01-18] MEDS ORDERED: *HR* FentaNYL (PF) 100 MCG/2 ML VIAL ONE (16:34)
[2020-01-18] MEDS ORDERED: *HR* Midazolam HCl 2 MG/2 ML VIAL ONE (16:34)
[2020-01-19 04:51] LABS: Basophils % 1.3 %; Eosinophils % 3.3 %; Hematocrit 43.6 % (37.5-50.1); Hemoglobin 13.8 g/dL (12.9-16.9); Immature Granulocytes % 0.4 % (0-4); Lymphocytes % 23.6 %; Mean Corpuscular HGB Conc 31.7 g/dL (31.6-35.5); Mean Corpuscular Hemoglobin 29.4 pg (28.0-33.3); Mean Corpuscular Volume 92.8 fL (83.0-100.0); Mean Platelet Volume 10.2 fL (9.4-12.4); Monocytes % 9.4 %; Platelet Count 206 K/mcL (140-400); Red Cell Distribution Width 12.8 % (11.5-14.5); White Blood Count 6.7 K/mcL (4.3-11.1)
[2020-01-19 04:52] LABS: Basophils # 0.1 K/mcL (0.0-0.2); Eosinophils # 0.2 K/mcL (0.0-0.6); Lymphocytes # 1.6 K/mcL (0.6-4.6); Monocytes # 0.6 K/mcL (0.0-1.3); Neutrophils # 4.1 K/mcL (1.6-8.9)
[2020-01-19 05:12] LABS: BUN/Creatinine Ratio 17 (6-26); Blood Urea Nitrogen 16 mg/dL (8-23); Calcium 8.4 mg/dL (8.6-10.3); Carbon Dioxide 24 mEq/L (23-29); Chloride 105 mEq/L (98-107); Glucose 104 mg/dL (70-105); Osmolality,Calculated 283 (280-300); Potassium 3.7 mEq/L (3.5-5.1); Sodium 136 mEq/L (136-145); eGFR For African Americans > 60 (> 60); eGFR For Non-African Americans > 60 (> 60)
[2020-01-19] MEDS: Aspirin Enteric Coated 81 MG Tablet PO SCH (08:15)
[2020-01-19] MEDS: Nitroglycerin 0.2 MG PATCH.TD24 TD SCH (08:15)
[2020-01-19] MEDS ORDERED: Furosemide 20 MG TABLET PO PRN (08:38)
[2020-01-19] MEDS ORDERED: Ergocalciferol (VIT D2) 50,000 UNIT (1.25MG) CAP PO SCH (09:00)
[2020-01-19] MEDS ORDERED: Isosorbide MONOnitrate (24 HR) 30 MG TAB.ER.24H PO SCH (09:00)
[2020-01-19] MEDS ORDERED: Budesonide/Formoterol 160/4.5 1 PUFF INH IH SCH (10:00)
[2020-01-19 11:12] VITALS: BP 129/76
[2020-01-19] MEDS ORDERED: carvediloL 6.25 MG TABLET PO SCH (17:00)
[2020-01-20] MEDS ORDERED: Metoprolol XL (24 HR) Succ 25 MG TAB.ER.24H PO SCH (09:00)
== END 2020-01-19 14:21 | disposition home or self-care (01) ==
LOC: 3BNU 13:54 → EMEROOARM 13:54 → SUATTDRO 17:09 → 3BNU 17:38
PROVIDERS: ADMIT Family Medicine; ATTEND Nurse Practitioner Adult Health